=== PATIENT | female | born 1935 | race Caucasian/White ===

== ENCOUNTER 2024-08-31 23:14 | Inpatient (IN) | payer MEDICARE, OTHER ==
[~2024-08-31] VITALS: Ht 162.6 cm; Wt 41.3 kg
[2024-09-01 00:47] LABS: BASOPHILS % (AUTO) 0.5 % (0.0-2.0); EOSINOPHILS # (AUTO) 0.4 K/uL (0.0-0.7); EOSINOPHILS % (AUTO) 5.1 % (0.0-6.0); HEMATOCRIT 40 % (33-45); HEMOGLOBIN 13.2 g/dL (11.5-14.8); LYMPHOCYTES # (AUTO) 2.1 K/uL (0.8-4.8); LYMPHOCYTES % (AUTO) 24.8 % (20.0-44.0); MEAN CORPUSCULAR HEMOGLOBIN 31 PG (26.0-33.0); MEAN CORPUSCULAR HGB CONC 33 g/dl (31.0-36.0); MEAN CORPUSCULAR VOLUME 93 fL (82-100); MONOCYTES # (AUTO) 0.9 K/uL (0.1-1.30); MONOCYTES % (AUTO) 10.7 % (2.0-12.0); NEUTROPHILS % (AUTO) 58.9 % (43.0-81.0); PLATELET COUNT (AUTO) 206 K/uL (150-450); RED BLOOD CELL COUNT(AUTO) 4.25 MIL/uL (4.0-5.2); WHITE BLOOD COUNT (AUTO) 8.6 K/uL (4.3-11.0)
[2024-09-01 00:55] LABS: AMPHETAMINE, URINE NEGATIVE (NEGATIVE); BARBITURATE, URINE NEGATIVE (NEGATIVE); BENZODIAZEPINE, URINE NEGATIVE (NEGATIVE); CANNABINOID, URINE NEGATIVE (NEGATIVE); COCCAINE, URINE NEGATIVE (NEGATIVE); OPIATE, URINE NEGATIVE (NEGATIVE); PHENCYCLIDINE SCREEN,URINE NEGATIVE (NEGATIVE)
[2024-09-01 01:02] LABS: ALANINE AMINOTRANSFERASE 13 U/L (12-78); ALBUMIN 2.9 g/dL (3.4-5.0); ALCOHOL, BLOOD < 3 mg/dL (0-10); ALKALINE PHOSPHATASE 90 U/L (46-116); ASPARTATE AMINOTRANSFERASE 17 U/L (15-37); BILIRUBIN,DIRECT 0.1 mg/dL (0.0-0.2); BILIRUBIN,TOTAL 0.2 mg/dL (0.2-1.0); CALCIUM, SERUM 10.3 mg/dL (8.5-10.1); CARBON DIOXIDE 27 mmol/L (21-32); CHLORIDE 106 mmol/L (98-107); CREATININE 0.9 mg/dL (0.6-1.3); GLUCOSE 108 mg/dL (74-106); POTASSIUM 3.9 mmol/L (3.5-5.1); SODIUM SERUM 138 mmol/L (136-145); TOTAL PROTEIN, SERUM 6.6 g/dL (6.4-8.2); UREA NITROGEN, BLOOD 21 mg/dL (7-18)
[2024-09-01 01:09] LABS: ACETAMINOPHEN <10 ug/ml (10-30); SALICYLATE 1.3 mg/dL (2.8-20.0)
[2024-09-01 01:18] LABS: APPEARANCE,URINE SLIGHTLY CLOUDY (CLEAR); BILIRUBIN,URINE NEGATIVE (NEGATIVE); BLOOD, URINE NEGATIVE Ery/uL (NEGATIVE); COLOR,URINE YELLOW (YELLOW); KETONES,URINE NEGATIVE (NEGATIVE); NITRITE, URINE NEGATIVE (NEGATIVE); PROTEIN,URINE NEGATIVE (NEGATIVE); UGLUCOSE NEGATIVE (NEGATIVE)
[2024-09-01 01:19] LABS: LEUKOCYTE ESTERASE ,URINE NEGATIVE (NEGATIVE)
[2024-09-01] MEDS ORDERED: DOCU100T2 PO (09:24)
[2024-09-01] MEDS ORDERED: MIRT7.5T10 PO (09:24)
[2024-09-01] MEDS ORDERED: ACET-868 PO (09:24)
[2024-09-01] MEDS ORDERED: MELA3TAB41 PO (09:24)
[2024-09-01] MEDS ORDERED: MAGN400O6 PO (09:24)
[2024-09-01 13:00] VITALS: O2SAT 98
[2024-09-01] MEDS ORDERED: ACETAMINOPHEN 325 MG TABLET PO PRN ×2 (14:00→16:00)
[2024-09-01] MEDS ORDERED: MAGNESIUM HYDROXIDE 30 ML UDC PO PRN ×2 (14:00→16:00)
[2024-09-01] MEDS ORDERED: LORAZEPAM 0.5 MG TABLET PO PRN (14:00)
[2024-09-01] MEDS ORDERED: MAG HYDROX/AL HYDROX/SIMETH 30 ML UDC PO PRN (14:00)
[2024-09-01] MEDS ORDERED: TEMAZEPAM 7.5 MG CAPSULE PO PRN (14:00)
[2024-09-01] MEDS: BLOOD SUGAR DIAGNOSTIC 1 EACH STRIP IN ONE (15:03)
[2024-09-01 16:00] VITALS: BP 142/66; TEMP 97.5; O2SAT 99
[2024-09-01] MEDS: OXCARBAZEPINE 150 MG TABLET PO SCH (17:00)
[2024-09-01 20:09] VITALS: BP 111/62; TEMP 97.6; O2SAT 97
[2024-09-01] MEDS ORDERED: MIRTAZAPINE 15 MG TABLET PO SCH (22:00)
[2024-09-02 08:00] VITALS: BP 173/88; TEMP 97.6; O2SAT 95
[2024-09-02 08:12] LABS: CREATININE 0.7 mg/dL (0.6-1.3)
[2024-09-02] MEDS: DOCUSATE SODIUM 100 MG CAPSULE PO SCH (08:26)
[2024-09-02 09:17] LABS: ALBUMIN 2.6 g/dL (3.4-5.0); BILIRUBIN,TOTAL 0.4 mg/dL (0.2-1.0); CALCIUM, SERUM 10.2 mg/dL (8.5-10.1); CREATININE 0.6 mg/dL (0.6-1.3); TOTAL PROTEIN, SERUM 6.1 g/dL (6.4-8.2)
[2024-09-02 10:21] LABS: THYROID STIMULATING HORMONE 2.25 uIU/mL (0.358-3.74)
[2024-09-02 16:00] VITALS: BP 106/63; TEMP 97.8; O2SAT 95
[2024-09-02 20:07] VITALS: BP 103/57; TEMP 97.6; O2SAT 95
[2024-09-02] MEDS: QUETIAPINE FUMARATE 25 MG TABLET PO SCH (21:00)
[2024-09-03 08:00] VITALS: BP 104/52; TEMP 97.8; O2SAT 97
[2024-09-03 16:00] VITALS: BP 109/47; TEMP 98; O2SAT 97
[2024-09-03 21:01] VITALS: BP 113/52; TEMP 97.9; O2SAT 97
[2024-09-04 08:00] VITALS: BP 148/69; TEMP 97.8; O2SAT 97
[2024-09-04 16:00] VITALS: BP 101/57; TEMP 97.9; O2SAT 96
[2024-09-04 20:06] VITALS: BP 117/62; TEMP 97.9; O2SAT 96
[2024-09-05 08:00] VITALS: BP 134/59; TEMP 97.7; O2SAT 97
[2024-09-05 16:00] VITALS: BP 114/64; TEMP 97.9; O2SAT 96
[2024-09-05 19:59] VITALS: BP 106/57; TEMP 98.2; O2SAT 97
[2024-09-06 08:00] VITALS: BP 131/82; TEMP 97.8; O2SAT 98
== END 2024-09-06 13:30 | DRG 885 ==
LOC: ER 23:18 → GPS 09-01 09:48
PROVIDERS: ADMIT Psychiatry & Neurology Psychiatry; ATTEND Internal Medicine
DX: F39 Unspecified mood [affective] disorder (principal); E44.0 Moderate protein-calorie malnutrition; F03.92 Unspecified dementia, unspecified severity, with psychotic disturbance; F03.93 Unspecified dementia, unspecified severity, with mood disturbance; G93.49 Other encephalopathy; F29 Unspecified psychosis not due to a substance or known physiological condition; E83.52 Hypercalcemia; Z73.6 Limitation of activities due to disability; Z88.2 Allergy status to sulfonamides; Z20.822 Contact with and (suspected) exposure to COVID-19; F60.0 Paranoid personality disorder; F32.A Depression, unspecified; R26.2 Difficulty in walking, not elsewhere classified; R79.89 Other specified abnormal findings of blood chemistry
CPT/HCPCS: 36415; 80048-TC; 80053-TC; 80061-TC; 80076-TC; 82565-TC; 82962-TC; 84443-TC; 85025-TC; 97110-TC; 97116-TC; 97530-TC; G0480